=== PATIENT | male | born 1935 | race Caucasian/White ===

== ENCOUNTER 2017-12-20 13:26 | Emergency (ER) | payer OTHER ==
[~2017-12-20] VITALS: Ht 165.1 cm; Wt 98.6 kg
[2017-12-20 14:16] LABS: APPEARANCE CLEAR ((CLEAR)); BILIRUBIN NEGATIVE; BLOOD NEGATIVE; COLOR YELLOW ((YELLOW)); GLUCOSE (STRIP) >=500; KETONES NEGATIVE; LEUKOCYTES NEGATIVE; NITRITE NEGATIVE; PROTEIN (STRIP) 100; SPECIFIC GRAVITY 1.014 (1.000-1.030); UROBILINOGEN 0.2 MG/DL (0.2-1.0)
[2017-12-20 14:17] LABS: HEMATOCRIT 30.2 % (38.0-50.0); HEMOGLOBIN 9.9 G/DL (12.5-16.6); MCHC 32.8 G/DL (30.0-36.0); MCV 94.7 FL (86-99); PLATELET COUNT 162 K/uL (156-360); RBC DIS.WIDTH-CV 13.1 % (11.8-14.6); RBC DIS.WIDTH-SD 45.7 % (39-53); RED BLOOD COUNT 3.19 M/uL (4.00-5.50); WHITE BLOOD COUNT 4.8 K/uL (4.1-10.2)
[2017-12-20 14:27] LABS: BACTERIA NONE SEEN /HPF; EPITHELIAL CELLS NONE SEEN /HPF; HYALINE CASTS 0-5 /LPF; MUCUS NONE SEEN /LPF; RED BLOOD CELLS 0-5 /HPF (0-5); UCUL ADDED? NO; WHITE BLOOD CELLS 0-5 /HPF (0-5)
[2017-12-20 14:30] LABS: CHLORIDE 104 mEq/L (99-109); POTASSIUM 4.8 mEq/L (3.7-5.4); SODIUM 136 mEq/L (136-147)
[2017-12-20 14:32] LABS: GLUCOSE 287 mg/dL (70-99)
[2017-12-20 14:36] LABS: CREATININE 2.3 mg/dL (0.6-1.3); GFR ESTIMATE (CALCULATED) 29 mL/min/ (58.99-99999)
[2017-12-20 14:37] LABS: UREA NITROGEN (BUN) 35 mg/dL (9-23)
[2017-12-20 15:51] LABS: ALBUMIN 3.8 g/dL (3.2-4.8)
[2017-12-20 15:54] LABS: TOTAL PROTEIN 6.5 g/dL (6.4-8.3)
[2017-12-20 15:56] LABS: TOTAL BILIRUBIN 0.6 mg/dL (0.0-1.0)
[2017-12-20 15:57] LABS: ALKALINE PHOSPHATASE 92 IU/L (3-129)
[2017-12-20 15:59] LABS: AST (GOT) 13 IU/L (2-34)
[2017-12-20 16:00] LABS: ALT (GPT) 15 IU/L (3-49); DIRECT BILIRUBIN 0.3 mg/dL (0.0-0.3)
[2017-12-20 16:04] LABS: TROP-I INTERPRETATION NEGATIVE; TROPONIN-I 0.02 ng/mL (0.0-0.30)
[2017-12-20] MEDS ORDERED: CLINDAMYCIN HC300 MG PO (17:11)
[2017-12-20 19:13] VITALS: BP 141/67
[2017-12-21] MEDS ORDERED: ONGLYZA2.5 MG PO (16:34)
[2017-12-21] MEDS ORDERED: ACARBOSE50 MG PO (16:36)
[2017-12-21] MEDS ORDERED: WELCHOL3.75 GM PO (16:37)
[2017-12-21] MEDS ORDERED: PIOGLITAZONE HC15 MG PO (16:38)
[2017-12-21] MEDS ORDERED: ROSUVASTATIN CA10 MG PO (16:39)
[2017-12-21] MEDS ORDERED: HYDROCODON-ACE1 EAC9 PO (16:43)
[2017-12-21] MEDS ORDERED: BUPROPION XL150 MG PO (16:45)
[2017-12-21] MEDS ORDERED: BUPROPION HCL150 M2 PO (16:47)
[2017-12-21] MEDS ORDERED: MEMANTINE HCL10 MG PO (16:47)
[2017-12-21] MEDS ORDERED: CO Q-10200 MG PO (16:50)
[2017-12-21] MEDS ORDERED: LO-DOSE ASPIRIN81 M2 PO (16:50)
[2017-12-21] MEDS ORDERED: VITAMIN D2000 UNI1 PO (16:51)
[2017-12-21] MEDS ORDERED: COLACE100 MG PO ×2 (16:52)
[2017-12-21] MEDS ORDERED: GINKGO BILOBA120 MG PO (16:58)
[2017-12-21] MEDS ORDERED: GLUCOSAMINE-CH1 EA27 PO (16:58)
[2017-12-21] MEDS ORDERED: MULTI-VITAMIN1 EAC4 PO (16:59)
== END 2017-12-20 19:15 | disposition home or self-care (01) ==
LOC: EME 13:26
PROVIDERS: Emergency Medicine
DX: L03.116 Cellulitis of left lower limb (principal); L03.115 Cellulitis of right lower limb; R41.0 Disorientation, unspecified; I87.8 Other specified disorders of veins; F03.90 Unspecified dementia, unspecified severity, without behavioral disturbance, psychotic disturbance, mood disturbance, and anxiety; Z87.891 Personal history of nicotine dependence
CPT/HCPCS: 71046; 80048; 80076; 81003; 82948; 83605; 84484; 85025; 85027; 87040; 87070; 87075; 87077; 87147; 87186; 87205; 93005; 99281; 99285; J2543; J3370

== ENCOUNTER 2017-12-20 21:50 | Inpatient (IN) | payer OTHER ==
[~2017-12-20] VITALS: Ht 177.8 cm; Wt 88.5 kg
[~2017-12-20 21:50] MED LIST: CLINDAMYCIN HC300 MG PO
[2017-12-20 22:52] LABS: HEMATOCRIT 28.6 % (38.0-50.0); HEMOGLOBIN 9.5 G/DL (12.5-16.6); MCH 31.3 PG (29.0-34.0); MCHC 33.2 G/DL (30.0-36.0); MCV 94.1 FL (86-99); PLATELET COUNT 144 K/uL (156-360); RBC DIS.WIDTH-CV 13.2 % (11.8-14.6); RBC DIS.WIDTH-SD 45.8 % (39-53); RED BLOOD COUNT 3.04 M/uL (4.00-5.50); WHITE BLOOD COUNT 4.6 K/uL (4.1-10.2)
[2017-12-20 23:03] LABS: CHLORIDE 105 mEq/L (99-109); POTASSIUM 4.8 mEq/L (3.7-5.4); SODIUM 137 mEq/L (136-147)
[2017-12-20 23:04] LABS: GLUCOSE 355 mg/dL (70-99)
[2017-12-20 23:08] LABS: CREATININE 2.3 mg/dL (0.6-1.3); GFR ESTIMATE (CALCULATED) 29 mL/min/ (58.99-99999)
[2017-12-20 23:09] LABS: UREA NITROGEN (BUN) 35 mg/dL (9-23)
[2017-12-20 23:13] LABS: TROP-I INTERPRETATION NEGATIVE; TROPONIN-I 0.01 ng/mL (0.0-0.30)
[2017-12-21 02:30] VITALS: BP 156/66
[2017-12-21 05:42] LABS: HEMATOCRIT 29.2 % (38.0-50.0); HEMOGLOBIN 9.3 G/DL (12.5-16.6); MCH 30.5 PG (29.0-34.0); MCHC 31.8 G/DL (30.0-36.0); MCV 95.7 FL (86-99); PLATELET COUNT 141 K/uL (156-360); RBC DIS.WIDTH-CV 13.3 % (11.8-14.6); RBC DIS.WIDTH-SD 46.9 % (39-53); RED BLOOD COUNT 3.05 M/uL (4.00-5.50); WHITE BLOOD COUNT 4.6 K/uL (4.1-10.2)
[2017-12-21 05:50] LABS: CHLORIDE 105 MEQ/L (99-109); CREATININE 2.2 MG/DL (0.6-1.3); GFR ESTIMATE (CALCULATED) 31 mL/min/ (58.99-99999); GLUCOSE 330 mg/dL (70-99); POTASSIUM 4.6 MEQ/L (3.7-5.4); SODIUM 135 MEQ/L (136-147); UREA NITROGEN (BUN) 35 mg/dL (9-23)
[2017-12-21 07:20] VITALS: BP 154/75
[2017-12-21 11:39] VITALS: BP 143/67
[2017-12-21 14:32] LABS: APPEARANCE CLEAR ((CLEAR)); BILIRUBIN NEGATIVE; BLOOD SMALL; COLOR YELLOW ((YELLOW)); GLUCOSE (STRIP) NEGATIVE; KETONES NEGATIVE; LEUKOCYTES NEGATIVE; NITRITE NEGATIVE; PROTEIN (STRIP) 30; SPECIFIC GRAVITY 1.009 (1.000-1.030); UROBILINOGEN 0.2 MG/DL (0.2-1.0)
[2017-12-21 14:36] LABS: BACTERIA NONE SEEN /HPF; EPITHELIAL CELLS NONE SEEN /HPF; RED BLOOD CELLS NONE SEEN /HPF (0-5); UCUL ADDED? NO; WHITE BLOOD CELLS 0-5 /HPF (0-5)
[2017-12-21 14:37] LABS: MUCUS TRACE /LPF
[2017-12-21 15:00] VITALS: BP 121/59
[2017-12-21] MEDS ORDERED: ONGLYZA2.5 MG PO (16:34)
[2017-12-21] MEDS ORDERED: ACARBOSE50 MG PO (16:36)
[2017-12-21] MEDS ORDERED: WELCHOL3.75 GM PO (16:37)
[2017-12-21] MEDS ORDERED: PIOGLITAZONE HC15 MG PO (16:38)
[2017-12-21] MEDS ORDERED: ROSUVASTATIN CA10 MG PO (16:39)
[2017-12-21] MEDS ORDERED: HYDROCODON-ACE1 EAC9 PO (16:43)
[2017-12-21] MEDS ORDERED: BUPROPION XL150 MG PO (16:45)
[2017-12-21] MEDS ORDERED: BUPROPION HCL150 M2 PO (16:47)
[2017-12-21] MEDS ORDERED: MEMANTINE HCL10 MG PO (16:47)
[2017-12-21] MEDS ORDERED: CO Q-10200 MG PO (16:50)
[2017-12-21] MEDS ORDERED: LO-DOSE ASPIRIN81 M2 PO (16:50)
[2017-12-21] MEDS ORDERED: VITAMIN D2000 UNI1 PO (16:51)
[2017-12-21] MEDS ORDERED: COLACE100 MG PO ×2 (16:52)
[2017-12-21] MEDS ORDERED: GINKGO BILOBA120 MG PO (16:58)
[2017-12-21] MEDS ORDERED: GLUCOSAMINE-CH1 EA27 PO (16:58)
[2017-12-21] MEDS ORDERED: MULTI-VITAMIN1 EAC4 PO (16:59)
[2017-12-21 20:11] VITALS: BP 152/88
[2017-12-21 23:47] VITALS: BP 138/56
[2017-12-22 04:00] VITALS: BP 138/76
[2017-12-22 06:02] LABS: CHLORIDE 108 MEQ/L (99-109); CREATININE 2.1 MG/DL (0.6-1.3); GFR ESTIMATE (CALCULATED) 32 mL/min/ (58.99-99999); UREA NITROGEN (BUN) 26 mg/dL (9-23)
[2017-12-22 06:23] LABS: GLUCOSE 52 mg/dL (70-99); POTASSIUM 3.6 MEQ/L (3.7-5.4); SODIUM 143 MEQ/L (136-147)
[2017-12-22 07:18] VITALS: BP 147/89
[2017-12-22 11:23] VITALS: BP 137/62
[2017-12-22 12:23] LABS: HEMOGLOBIN A1c (GLYCOHEMOGLOB) 10.6 % (Below 5.7)
[2017-12-22 16:35] VITALS: BP 162/70
[2017-12-22 23:48] VITALS: BP 168/73
[2017-12-23 06:29] LABS: CHLORIDE 107 MEQ/L (99-109); CREATININE 2.2 MG/DL (0.6-1.3); GFR ESTIMATE (CALCULATED) 31 mL/min/ (58.99-99999); POTASSIUM 4.1 MEQ/L (3.7-5.4); SODIUM 143 MEQ/L (136-147); UREA NITROGEN (BUN) 28 mg/dL (9-23)
[2017-12-23 06:30] LABS: GLUCOSE 50 mg/dL (70-99)
[2017-12-23 08:03] VITALS: BP 157/71
[2017-12-23] MEDS ORDERED: BUPROPION XL150 MG PO (11:52)
[2017-12-23] MEDS ORDERED: CILOSTAZOL100 MG PO (11:54)
[2017-12-23] MEDS ORDERED: LEVEMIR FL100 UNIT/1 SC (11:58)
[2017-12-23 17:00] VITALS: BP 169/68
[2017-12-24 00:10] VITALS: BP 145/73
[2017-12-24 05:52] LABS: BASOPHIL (%) 0.8 % (0-1); EOSINOPHIL (%) 3.5 % (0-5); EOSINOPHIL COUNT 0.2 K/uL (0-0.3); HEMATOCRIT 30.4 % (38.0-50.0); HEMOGLOBIN 9.8 G/DL (12.5-16.6); IMMATURE GRANULOCYTE (%) 0.4 % (0.0-0.7); LYMPHOCYTE (%) 37.7 % (15-42); LYMPHOCYTE COUNT 1.9 K/uL (1.0-2.8); MCH 30.8 PG (29.0-34.0); MCHC 32.2 G/DL (30.0-36.0); MCV 95.6 FL (86-99); MONOCYTE (%) 11.3 % (3-12); MONOCYTE COUNT 0.6 K/uL (0-0.8); NEUTROPHIL (%) 46.3 % (45-76); NEUTROPHIL COUNT 2.4 K/uL (1.8-6.4); PLATELET COUNT 181 K/uL (156-360); RBC DIS.WIDTH-CV 13.4 % (11.8-14.6); RED BLOOD COUNT 3.18 M/uL (4.00-5.50); WHITE BLOOD COUNT 5.1 K/uL (4.1-10.2)
[2017-12-24 06:02] LABS: CHLORIDE 107 MEQ/L (99-109); CREATININE 2.3 MG/DL (0.6-1.3); GFR ESTIMATE (CALCULATED) 29 mL/min/ (58.99-99999); GLUCOSE 67 mg/dL (70-99); POTASSIUM 4.8 MEQ/L (3.7-5.4); SODIUM 143 MEQ/L (136-147); UREA NITROGEN (BUN) 28 mg/dL (9-23)
[2017-12-24 07:11] VITALS: BP 135/61
[2017-12-24] MEDS ORDERED: HYDROCODON-ACE1 EAC9 PO (12:02)
== END 2017-12-24 13:08 | DRG 682 ==
LOC: EME → EDBD 21:50 → 4EAST 12-21 00:45 → EDOF 12-21 00:45 → 5SOUTH 12-21 00:45 → ENRESERV 12-21 01:03 → 4EAST 12-21 02:14 → ENRESERV 12-22 14:01 → 5SOUTH 12-22 15:13
PROVIDERS: Emergency Medicine; Family Medicine; Nurse Practitioner Adult Health; Physician Assistant; Student in an Organized Health Care Education/Training Program
DX: N17.9 Acute kidney failure, unspecified (principal); G92 Toxic encephalopathy; T43.295A Adverse effect of other antidepressants, initial encounter; I87.8 Other specified disorders of veins; I87.2 Venous insufficiency (chronic) (peripheral); L97.311 Non-pressure chronic ulcer of right ankle limited to breakdown of skin; L97.922 Non-pressure chronic ulcer of unspecified part of left lower leg with fat layer exposed; F01.50 Vascular dementia, unspecified severity, without behavioral disturbance, psychotic disturbance, mood disturbance, and anxiety; I13.0 Hypertensive heart and chronic kidney disease with heart failure and stage 1 through stage 4 chronic kidney disease, or unspecified chronic kidney disease; I50.9 Heart failure, unspecified; N18.4 Chronic kidney disease, stage 4 (severe); R09.02 Hypoxemia; E11.22 Type 2 diabetes mellitus with diabetic chronic kidney disease; E11.51 Type 2 diabetes mellitus with diabetic peripheral angiopathy without gangrene; I70.203 Unspecified atherosclerosis of native arteries of extremities, bilateral legs; E11.40 Type 2 diabetes mellitus with diabetic neuropathy, unspecified; E11.649 Type 2 diabetes mellitus with hypoglycemia without coma; R53.1 Weakness; I25.10 Atherosclerotic heart disease of native coronary artery without angina pectoris; R29.6 Repeated falls; K59.00 Constipation, unspecified; D64.9 Anemia, unspecified; Z95.5 Presence of coronary angioplasty implant and graft; Z91.81 History of falling; F32.9 Major depressive disorder, single episode, unspecified; F41.9 Anxiety disorder, unspecified
CPT/HCPCS: 70450; 71046; 80048; 80048 91; 80076; 81003; 82948; 83036; 83605; 83880; 84484; 85025; 85027; 87040; 87070; 87075; 87077; 87147; 87186; 87205; 87641; 93005; 93925; 99281; 99285; J0690; J1644; J1815; J2543; J3370